=== PATIENT | female | born 1960 | race Caucasian/White ===

== ENCOUNTER → 2016-04-25 | Outpatient (CLI) | payer MEDICARE, OTHER ==
[~2016-04-25] MED LIST: DEPA500T3 PO; DIVA500T3 PO; GLUM500T PO; LEVO88TA2 PO; MULT1TAB84 PO; OYST500T53 PO; VITA10003 PO; VITA500T49 PO; VITACAP7 PO; ZIPR1CAP10 PO; ZIPR1CAP8 PO; [UNRECOGNIZED DRUG - CODE] PO
--- NOTE | 2016-04-25 17:04 | EKG ---
Date Performed: 04/25/2016 Time Performed: 09:33:42 PTAGE: 56 years EKG: Sinus rhythm . Normal ECG NO PREVIOUS TRACING DOCTOR: Tim Clarke Interpretating Date/Time 04/25/2016 17:00:05
== END ==
LOC: HCAV 09:01
PROVIDERS: ATTEND Family Medicine
DX: E11.9 Type 2 diabetes mellitus without complications (principal); E83.51 Hypocalcemia; E03.9 Hypothyroidism, unspecified; F39 Unspecified mood [affective] disorder
CPT/HCPCS: 93005

== ENCOUNTER 2016-11-25 07:53 | Emergency (ER) | payer MEDICARE, OTHER ==
[~2016-11-25] VITALS: Ht 172.7 cm; Wt 55.0 kg
[~2016-11-25 07:53] MED LIST changes: -ZIPR1CAP10 PO
[2016-11-25 07:58] VITALS: BP 130/60; PULSE 82; RESP 20; TEMP 97.7; O2SAT 98
[2016-11-25] MEDS ORDERED: ALPH300C PO (08:25)
[2016-11-25] MEDS ORDERED: CALC0.5C6 PO (08:25)
[2016-11-25] MEDS ORDERED: TRAV0.00 EACH EYE (08:25)
[2016-11-25] MEDS ORDERED: MULTTAB25 PO (08:25)
[2016-11-25] MEDS ORDERED: traMADol HCL 50 MG TAB PO ONE (09:00)
--- NOTE | 2016-11-25 09:21 | RADRPT ---
EXAM DATE/TIME: 11/25/2016 09:03 [place] COMPARISON: No previous studies available for comparison. INDICATIONS : Patient has swelling in right wrist after falling yesterday. MEDICAL HISTORY : None. SURGICAL HISTORY : None. ENCOUNTER: Initial ACUITY: 2 days PAIN SCORE: 5/10 LOCATION: Right Wrist FINDINGS: 3 views of the right wrist demonstrate a transverse fracture of the distal radial metaphysis with sli ght dorsal angulation of the distal fragment. Fracture line does not extend into the radiocarpal join t. Carpal bones appear intact. There is a corticated ossific density adjacent to the ulnar styloid. S oft tissue swelling is present. No radiopaque foreign body. CONCLUSION: 1. Transverse distal radial metaphysis fracture with slight dorsal angulation of the distal fragment. 2. The ossific density adjacent to the ulnar styloid is felt to represent an os styloideum and not a fracture. Jarod Nelson MD on November 25, 2016 at 9:18 Board Certified Radiologist. This report was verified electronically.
[2016-11-25] MEDS ORDERED: PROPOFOL 200 MG/20 ML AMP IV ONE (10:00)
[2016-11-25 10:15] VITALS: O2SAT 96; O2SAT 99
[2016-11-25 10:26] VITALS: RESP 17
--- NOTE | 2016-11-25 10:54 | PD ---
Data Data Last Documented VS Vital Signs Date Time Temp Pulse Resp B/P (MAP) Pulse Ox O2 Delivery O2 Flow Rate FiO2 11/25/16 10:26 17 11/25/16 10:15 99 15.00 11/25/16 07:58 97.7 82 130/60 (83) Room Air Orders Orders Wrist, Complete ([id number]) (11/25/16 ) Tramadol (Ultram) (11/25/16 09:00) Iv Access Insert/Monitor (11/25/16 09:47) Propofol 200 Mg/20 Ml Inj (Diprivan 200 (11/25/16 10:00) Fiberglass Sugartong Sp Ad Arm (11/25/16 ) Sling Cradle Arm (11/25/16 ) MDM Supervised Visit with NUNU: No Narrative Course I was asked by Dr. Burns to provide conscious sedation for this patient for right forearm reduction. This is a 56-year-old female with mild mental handicap she is otherwise healthy, takes no medications, ASA 1, Mallampati 1. She is able to verbalize and give her own consent and her aide who spoke with her carpenter supervisor agrees that the patient should be able to provide her own consent. I discussed the risk of apnea hypotension and allergic reaction with her for the sedation. She verbalized understanding and agreement. I also discussed with her wrist of his competitions and alternatives for a closed reduction of Dr. Burns is about performed and she verbalized understanding and agreement and consented for both procedures. Patient did well with sedation and reduction. Further care by Dr. Burns. Procedures Procedure Narrative After the risks and benefits were discussed the following procedure was performed: MODERATE SEDATION: The patient was placed on a cardiac cath lab manager and pulse oximetry and end-tidal CO2 monitoring. An ambu bag and suction was immediately available at bedside. The patient was monitored by the nurse and respiratory therapist. Oxygen saturation, heart rate and blood pressure were monitored. Procedural sedation was acheived using 50 mg of propofol. The patient did have a short episode of apnea lasting less than 45 seconds. Her saturation was maintained greater than 99%. She was AVM for 45 seconds during this period. The patient was observed until awake and alert. Left in nursing care, after sedation she is feeling well suffered no apparent untoward event. Procedural Sedation time in attendance was 16 minutes. Kalyan Robert MD Nov 25, 2016 10:54
[2016-11-25] MEDS ORDERED: TYLE325T PO (11:36)
[2016-11-25] MEDS ORDERED: HYDR-3533 PO (11:36)
--- NOTE | 2016-11-25 11:37 | PD ---
HPI Chief Complaint: Injury Time Seen by Provider: 08:32 Travel History International Travel<30 days: No Contact w/Intl Traveler<30days: No Traveled to known affect area: No History of Present Illness HPI Patient is a 56-year-old female who comes in due to a wrist pain and deformity. She says that she fell on it yesterday. She denies hitting her head or any loss of consciousness. She denies any other injuries. She denies any other pain to the rest of her arm. PFSH Past Medical History Depression: Yes Diminished Hearing: No Psychiatric: Yes Thyroid Disease: Yes Tetanus Vaccination: Unknown ?: Not Past Surgical History Surgical History: No Previous Surgery Social History Alcohol Use: No Tobacco Use: No Substance Use: No Allergies-Medications (Allergen,Severity, Reaction): Coded Allergies: No Known Allergies (Verified , 11/25/16) Reported Meds & Prescriptions Reported Meds & Active Scripts Active Oyster Shell Calcium 500 (Calcium Carbonate-Vitamin D) 500-125 Mg-Unit Tab 1 Tab PO TID Vitamin D-3 (Cholecalciferol) 1,000 Unit Tab 1,000 Units PO BID Ziprasidone 40 Mg Cap 40 Mg PO DAILY To be taken with dinner Pexeva (Paroxetine Mesylate) 30 Mg Tab 30 Mg PO DAILY@0600 Reported Travatan Z Opth Drops (Travoprost) 0.004 % Soln 1 Drop EACH EYE HS Alpha Lipoic Acid 300 Mg Cap 300 Mg PO BID Calcitriol 0.5 Mcg Cap 1 Mcg PO WEEKLY Multi For Her 50+ (Multiple Vitamins W/ Minerals) 0.4 Mg-250 Mcg Tab PO DAILY Levothyroxine (Levothyroxine Sodium) 88 Mcg Tab 88 Mcg PO DAILY Depakote ER (Divalproex Sodium) 500 Mg Kelsy 1,000 Mg PO HS Review of Systems General / Constitutional: No: Fever, Chills HENT: No: Headaches, Lightheadedness Cardiovascular: No: Chest Pain or Discomfort Respiratory: No: Shortness of Breath Gastrointestinal: No: Nausea, Vomiting Musculoskeletal: Positive: Edema, Pain Skin: No Rash Neurologic: No: Weakness, Dizziness Physical Exam Narrative GENERAL: Awake and alert, no acute distress. SKIN: Focused skin assessment warm/dry. Ecchymosis of the right wrist. HEAD: Atraumatic. Normocephalic. EYES: Pupils equal and round. No scleral icterus. ENT: No nasal bleeding or discharge. Mucous membranes pink and moist. CARDIOVASCULAR: Regular rate and rhythm. No murmur appreciated. RESPIRATORY: No accessory muscle use. Clear to auscultation. Breath sounds equal bilaterally. MUSCULOSKELETAL: Obvious deformity of the right wrist. Radial pulses intact. Tender to palpation of the wrist. Able to fully move her right elbow and her fingers. NEUROLOGICAL: Awake and alert. No obvious cranial nerve deficits. Motor grossly within normal limits. Normal speech. Sensation intact. Data Data Last Documented VS Vital Signs Date Time Temp Pulse Resp B/P (MAP) Pulse Ox O2 Delivery O2 Flow Rate FiO2 11/25/16 10:26 17 11/25/16 10:15 99 15.00 11/25/16 07:58 97.7 82 130/60 (83) Room Air Orders Orders Wrist, Complete ([id number]) (11/25/16 ) Tramadol (Ultram) (11/25/16 09:00) Iv Access Insert/Monitor (11/25/16 09:47) Propofol 200 Mg/20 Ml Inj (Diprivan 200 (11/25/16 10:00) Fiberglass Sugartong Sp Ad Arm (11/25/16 ) Sling Cradle Arm (11/25/16 ) MDM Medical Decision Making Medical Screen Exam Complete: Yes Emergency Medical Condition: Yes Differential Diagnosis Wrist fracture versus dislocation versus sprain Narrative Course Patient is a 56-year-old female comes in after a fall. She has an obvious deformity of her right wrist. X-ray shows a fracture of the radius. She was placed in a splint. Given pain medicine. She'll be discharged with a prescription for pain medicine. Advised follow-up with orthopedics. Procedures Procedure Narrative Right wrist was reduced and splinted. It was straightened and placed in a sugar tong splint. Patient tolerated the procedure well. Diagnosis Primary Impression: Wrist fracture, right Qualified Codes: S62.101A - Fracture of unspecified carpal bone, right wrist, initial encounter for closed fracture Referrals: Isaiah Pedroza MD call for appointment Patient Instructions: General Instructions, Wrist Fracture in Adults (ED) Additional Instructions: Take Tylenol as needed for pain. You can take a Lortab for severe pain. Do not combine Lortab with additional Tylenol as it has Tylenol already.. Follow- up with orthopedics in 1-2 weeks. Do not get her splint wet. Return to the ED as needed for any worsening symptoms. Scripts Acetaminophen (Tylenol) 325 Mg Tab 650 MG PO Q6H Y for PAIN SCALE 1 TO 10, #15 TAB 0 Refills Prov: Shae Burns MD 11/25/16 Hydrocodone-Acetaminophen (Lortab) 5-325 Mg Tab 1 TAB PO Q6H Y for PAIN, #10 TAB 0 Refills Prov: Shae Burns MD 11/25/16 Disposition: 01 DISCHARGE HOME Condition: Stable Shae Burns MD Nov 25, 2016 11:37
== END 2016-11-25 12:18 | disposition home or self-care (01) ==
LOC: NEPC 07:53
DX: S62.101A Fracture of unspecified carpal bone, right wrist, initial encounter for closed fracture (principal); W19.XXXA Unspecified fall, initial encounter
CPT/HCPCS: 25605; 73110; 99151; 99153

== ENCOUNTER 2017-06-09 16:33 | Emergency (ER) | payer MEDICARE, OTHER ==
[~2017-06-09] VITALS: Ht 167.6 cm; Wt 56.0 kg
[~2017-06-09 16:33] MED LIST changes: +ALPH300C PO; +CALC0.5C PO; -DEPA500T3 PO; -GLUM500T PO; +HYDR-3533 PO; -MULT1TAB84 PO; +MULTTAB25 PO; +TRAV0.00 EACH EYE; +TYLE325T PO; -VITA500T49 PO; -VITACAP7 PO
[2017-06-09 16:46] VITALS: BP 116/53; PULSE 85; RESP 17; TEMP 99; O2SAT 98
--- NOTE | 2017-06-09 19:38 | PD ---
HPI Chief Complaint: Laceration/Skin Injury Time Seen by Provider: 19:31 Travel History International Travel<30 days: No Contact w/Intl Traveler<30days: No Traveled to known affect area: No History of Present Illness HPI 57-year-old white female presents emergency department accompanied by her brother for evaluation of facial laceration. Patient slipped and fell on the kitchen floor. She denies syncope. No neck or back pain. No numbness, tingling or weakness. She is unsure of her last tetanus shot. Pain is mild. No alleviating factors worsened by slipping on the floor. PFSH Past Medical History Depression: Yes Diminished Hearing: No Psychiatric: Yes Thyroid Disease: Yes Tetanus Vaccination: > 5 Years Past Surgical History Surgical History: No Previous Surgery Social History Alcohol Use: No Tobacco Use: No Substance Use: No Allergies-Medications (Allergen,Severity, Reaction): Coded Allergies: No Known Allergies (Verified Adverse Reaction, Unknown, 06/09/17) Reported Meds & Prescriptions Reported Meds & Active Scripts Active Divalproex ER (Divalproex Sodium) 500 Mg Tab 1,000 Mg PO HS Tylenol (Acetaminophen) 325 Mg Tab 650 Mg PO Q6H PRN Lortab (Hydrocodone-Acetaminophen) 5-325 Mg Tab 1 Tab PO Q6H PRN Oyster Shell Calcium 500 (Calcium Carbonate-Vitamin D) 500-125 Mg-Unit Tab 1 Tab PO TID Vitamin D-3 (Cholecalciferol) 1,000 Unit Tab 1,000 Units PO BID Ziprasidone 40 Mg Cap 40 Mg PO DAILY To be taken with dinner Pexeva (Paroxetine Mesylate) 30 Mg Tab 30 Mg PO DAILY@0600 Reported Travatan Z Opth Drops (Travoprost) 0.004 % Soln 1 Drop EACH EYE HS Alpha Lipoic Acid 300 Mg Cap 300 Mg PO BID Calcitriol 0.5 Mcg Cap 1 Mcg PO WEEKLY Multi For Her 50+ (Multiple Vitamins W/ Minerals) 0.4 Mg-250 Mcg Tab PO DAILY Levothyroxine (Levothyroxine Sodium) 88 Mcg Tab 88 Mcg PO DAILY Review of Systems Except as stated in HPI: all other systems reviewed are Neg Physical Exam Narrative GENERAL: Well-developed, well-nourished in no apparent distress. Nontoxic appearing. HEAD: Patient has some mild swelling to the right temporal region. There is a 3 cm laceration. No bony step-off. Neurovascular intact. No foreign body EYES: Pupils equal round and reactive. Extraocular motions intact. No scleral icterus. No injection or drainage. ENT: Nose clear. Throat without erythema, tonsillar hypertrophy or exudate. Uvula midline. Airway patent. NECK: Trachea midline. Supple, nontender, moves head freely. No central bony tenderness or spasm. CARDIOVASCULAR: Regular rate and rhythm without murmurs, gallops, or rubs. RESPIRATORY: Clear to auscultation. Breath sounds equal bilaterally. No wheezes , rales, or rhonchi. GASTROINTESTINAL: Abdomen soft, non-tender, nondistended. No hepato-splenomegaly , or palpable masses. No guarding. EXTREMITIES: No clubbing, cyanosis, or edema. No joint tenderness. BACK: Nontender without deformity. No flank tenderness. NEUROLOGICAL: Awake, alert and oriented x 3 .Cranial nerves grossly intact. Motor and sensory grossly within normal limits. Normal speech. Data Data Last Documented VS Vital Signs Date Time Temp Pulse Resp B/P (MAP) Pulse Ox O2 Delivery O2 Flow Rate FiO2 06/09/17 16:46 99.0 85 17 116/53 (74) 98 [facility] Medical Decision Making Medical Screen Exam Complete: Yes Emergency Medical Condition: Yes Medical Record Reviewed: Yes Differential Diagnosis MDM: High Differential diagnoses: Fracture, sprain, strain, dislocation, contusion, neurovascular injury Narrative Course Patient's lacerations closed with Dermabond. Tetanus immunization updated. Patient's exam is reassuring. She moves all extremities in a coordinated fashion. She is alert and oriented there is no evidence of any acute injury or cranial head injury. Imaging at this time is not indicated there was no syncope. No memory loss. No vomiting. Procedures Procedure Narrative LACERATION LOCATION: Right faith LENGTH: 3 cm NUMBER OF STITCHES/MATHEUS: Not applicable REPAIR: The area of the laceration was prepped with Betadine and sterilely draped. The wound was copiously irrigated and explored without evidence of foreign body, tendon injury or neurovascular injury. The wound was closed using Dermabond. This was a simple single] layer repair. A sterile dressing was applied. The patient was advised to keep the dressing clean and dry. Patient tolerated the procedure well. Diagnosis Primary Impression: Facial laceration Additional Impression: Head contusion Patient Instructions: General Instructions Additional Instructions: Rest. Ice pack tonight. Tylenol. Head precautions. Dermabond instructions. Follow-up with your medical doctor next week for recheck. Sunscreen and mederma for 6 months. Return to the ER for any problems. Med/Other Pt SpecificInfo: Wound Care Disposition: 01 DISCHARGE HOME Condition: Stable Reid Marshall Jun 09, 2017 19:38
== END 2017-06-09 20:21 | disposition home or self-care (01) ==
LOC: NEPD 16:33
DX: S01.81XA Laceration without foreign body of other part of head, initial encounter (principal); F32.9 Major depressive disorder, single episode, unspecified; W01.0XXA Fall on same level from slipping, tripping and stumbling without subsequent striking against object, initial encounter; Y92.000 Kitchen of unspecified non-institutional (private) residence as the place of occurrence of the external cause; Z79.899 Other long term (current) drug therapy
CPT/HCPCS: 12013